=== PATIENT | male | born 1970 | race Caucasian/White ===

== ENCOUNTER → 2017-11-27 | Emergency (ER) | payer OTHER ==
[~2017-11-27] VITALS: Ht 185.4 cm; Wt 176.9 kg
[~2017-11-27] MED LIST: CYCLOBENZAPRINE10 MG PO; HUMALOG100 UNIT/1 SUB-Q; INDOMETHACIN50 MG PO; LEVEMIR FL100 UNIT/2; LIDODERM1 EACH TOP; LIPITOR80 MG GT; METFORMIN HCL1000 M1 PO; ZESTRIL40 MG PO
== END ==
LOC: ED 03:59
DX: S46.911A Strain of unspecified muscle, fascia and tendon at shoulder and upper arm level, right arm, initial encounter (principal); W17.89XA Other fall from one level to another, initial encounter; E11.9 Type 2 diabetes mellitus without complications; E78.00 Pure hypercholesterolemia, unspecified; I10 Essential (primary) hypertension; Z98.890 Other specified postprocedural states; Z90.89 Acquired absence of other organs; Z79.4 Long term (current) use of insulin; Z79.899 Other long term (current) drug therapy
CPT/HCPCS: 73030; 99283

== ENCOUNTER 2022-05-09 07:00 | Day surgery (SDC) | payer OTHER ==
[~2022-05-09] VITALS: Ht 188 cm; Wt 156.8 kg
[~2022-05-09 07:00] MED LIST changes: +ALLOPURINOL100 MG PO; +ASPIRIN81 MG PO; +ESCITALOPRAM OX20 MG; +LISINOPRIL-HCT1 EACH PO; +TOUJEO MAX300 UNIT/1 SQ; +TOUJEO SOL300 UNIT/1 SUB-Q; +VENTOLIN HFA18 GM; +VENTOLIN HFA18 GM INH
--- NOTE | 2022-05-09 09:08 | NUR ---
05/09/22 0908 Meagan Bedoya 0859 PATIENT ARRIVES TO PACU ORAL AIRWAY IN PLACE. RESP EVEN AND UNLABORED, WITH INTERVENTION, MASK AT 12 LITERS, DECREASED TO 6 LITERS 0904 PATIENT COUGHING ON ORAL AIRWAY, ORAL AIRWAY REMOVED. REQUIRES JAW THRUST TO MAINTAIN PATENT AIRWAY. 0907 PATIENT AWAKE BUT DROWSY. FOLLOWING COMMANDS. RESP EVEN AND UNLABORED, COARSE COUGH. OXYGEN MASK OFF. PATIENT DENIES PAIN OR NAUSEA.
--- NOTE | 2022-05-09 10:56 | OR ---
[facility] [address] [place], [place] [address] Signed DATE OF OPERATION: 05/09/2022 SURGEON: Finn Casiano MD PREOPERATIVE DIAGNOSIS: Screening. POSTOPERATIVE DIAGNOSES: 1. 7 mm polyp at 70 cm. 2. 5 mm polyp at 95 cm (transverse colon). 3. 7 mm polyp at 50 cm. 4. Minimal internal hemorrhoid tissue. PROCEDURE: Colonoscopy with hot biopsy. ESTIMATED BLOOD LOSS: None. INDICATIONS: Annalee is a 52-year-old obese diabetic gentleman, asked to see me for his initial screening colonoscopy. He has no lower GI complaints. There is no family history of colon cancer or polyps. He has been through gastric bypass surgery and has lost 85 pounds. He is still a very large male with a very full face, heavy flores, heavy chest, abdomen and neck. He needs moderate anesthesia care in that regard. In fact, it proved to be very martin today as he needed constant monitoring from our anesthesia provider. He told me that helped his with her colonoscopy just a couple of years ago. He has also had a right [id number] amputation. In the office, I gave him a pamphlet on colonoscopy. We reviewed the nature of the test. They understand there is risk including, but not limited to gas bloating, crampy abdominal pain, bleeding, perforation requiring surgery, and missed diagnosis. We also reviewed the need for monitored anesthesia care. They had expressed understanding and wished to proceed. PROCEDURE NOTE: Annalee was taken into our endoscopy suite and placed in the left lateral decubitus position. He was given IV sedation with propofol per our nurse administrative services coordinator. A digital rectal exam was performed. He really has no external hemorrhoids. He had good sphincter tone. I could not reach his prostate gland. The adult colonoscope had been introduced and advanced all the way around into the cecum under direct visualization of the camera without difficulty. His prep was moderate. He should use more prep in the Electronically Signed By: FINN CASIANO MD 05/09/22 1056 PATIENT NAME: ANNALEE PATEL OPERATIVE REPORT DATE OF : 72 REPORT #: [id number] PHYSICIAN: FINN CASIANO MD PCP: JEFFRY ELLER MD REPORT IS CONFIDENTIAL AND NOT TO BE RELEASED WITHOUT AUTHORIZATION [facility] [address] [place] [id number] Signed future. Nevertheless, we could see the appendiceal orifice and ileocecal valve. The scope was then slowly withdrawn. We took pictures throughout for photodocumentation. The above-mentioned polyps were easily removed with the help of hot biopsy forceps. There was no diverticulosis. The scope had been retroflexed in the rectum and he did have minimal to moderate internal hemorrhoid columns. After this, the gas was suctioned out and the colonoscope removed. Annalee tolerated the procedure quite well. RECOMMENDATIONS: Annalee will followup in my office in 7 to 14 days to review his results. He needs to consider additional bowel prep in the future. He will always need monitored anesthesia care. Finn Casiano MD ALB/MODL /[id number] cc: MD Jeffry Rebollar MD Copies: FINN CASIANO MD, ROBERT D DMD ~ Electronically Signed By: FINN CASIANO MD 05/09/22 1056 PATIENT NAME: ANNALEE PATEL OPERATIVE REPORT DATE OF : 72 REPORT #: [id number] PHYSICIAN: FINN CASIANO MD PCP: JEFFRY ELLER MD REPORT IS CONFIDENTIAL AND NOT TO BE RELEASED WITHOUT AUTHORIZATION
--- NOTE | 2022-05-13 09:36 | PATH ---
[facility] [address] [place], [place] [address] Signed SPECIMEN(S): A COLON POLYP AT 70 CM SPECIMEN(S): B COLON POLYP AT 95 CM SPECIMEN(S): C COLON POLYP AT 50 CM SPECIMEN SOURCE: A. COLON POLYP AT 70 CM B. COLON POLYP AT 95 CM C. COLON POLYP AT 50 CM CLINICAL HISTORY: Screening colonoscopy. Postop: Colon polyps, internal hemorrhoids. FINAL PATHOLOGIC DIAGNOSIS: A. Colon, polyp at 70 cm, polypectomy: - Tubular adenoma. - Negative for high-grade dysplasia or malignancy. B. Colon, polyp at 95 cm, polypectomy: - Cauterized colonic mucosa with no histopathologic abnormality. - Negative for dysplasia or malignancy. C. Colon, polyp at 50 cm, polypectomy: - Tubular adenoma. - Negative for high-grade dysplasia or malignancy. COMMENT: Regarding specimen B: Multiple additional deeper levels were examined. NAL:cml:C2NR MICROSCOPIC EXAMINATION: Histologic sections of all submitted blocks are examined by light microscopy. These findings, together with the gross examination, support the pathologic diagnosis. GROSS DESCRIPTION: Three specimens are received in three containers labeled with "JG." A. The specimen, labeled "JG, 1," and designated on the requisition "70 cm colon polypectomy," is received in formalin and consists of one fragment of pink-muniz tissue (0.3 cm in greatest dimension). The specimen is submitted entirely in cassette (A1). B. The specimen, labeled "JG, 2," and designated on the requisition "95 cm colon polypectomy," is received in formalin and consists of one fragment of pink-muniz tissue (0.2 cm in greatest dimension). PATIENT NAME: ANNALEE PATEL PATHOLOGY DATE OF : 72 REPORT #: [id number] PHYSICIAN: [facility] PCP: JEFFRY ELLER MD REPORT IS CONFIDENTIAL AND NOT TO BE RELEASED WITHOUT AUTHORIZATION [facility] [address] [place] [address] Signed The specimen is submitted entirely in cassette (B1). C. The specimen, labeled "JG, 3," and designated on the requisition "50 cm colon polypectomy," is received in formalin and consists of one fragment of pink-muniz tissue (0.3 cm in greatest dimension). The specimen is submitted entirely in cassette (C1). AC (under the direct supervision of a pathologist) The Gross Description was prepared using a voice recognition system. The report was reviewed for accuracy; however, sound-alike word errors, addition and/or deletions may occur. If there is any question about this report, please contact Client Services. PERFORMING LABORATORY: The technical component was performed by [facility], [address] [place] [id number] (CLIA# [id number]). [facility] [address] [address] (CLIA# [id number]). Diagnostician: Radha Mcneil MD Pathologist Electronically Signed 05/13/2022 Copies: ~ PATIENT NAME: ANNALEE PATEL PATHOLOGY DATE OF : 72 REPORT #: [id number] PHYSICIAN: [facility] PCP: JEFFRY ELLER MD REPORT IS CONFIDENTIAL AND NOT TO BE RELEASED WITHOUT AUTHORIZATION
== END 2022-05-09 09:40 | disposition home or self-care (01) ==
LOC: OPS 07:00 → DS 07:00 → OPS 07:45 → DS 09:15 → OPS 09:40
PROVIDERS: ATTEND Colon & Rectal Surgery
PROC: 0DBE8ZX Excision of Large Intestine, Via Natural or Artificial Opening Endoscopic, Diagnostic (ICD-10-PCS; principal; 2022-05-09 08:00)
DX: Z12.11 Encounter for screening for malignant neoplasm of colon (principal); D12.6 Benign neoplasm of colon, unspecified; K64.8 Other hemorrhoids; R00.1 Bradycardia, unspecified; E11.42 Type 2 diabetes mellitus with diabetic polyneuropathy; I10 Essential (primary) hypertension; E78.5 Hyperlipidemia, unspecified; E11.610 Type 2 diabetes mellitus with diabetic neuropathic arthropathy; E66.9 Obesity, unspecified; Z68.42 Body mass index [BMI] 45.0-49.9, adult; Z79.4 Long term (current) use of insulin; Z79.84 Long term (current) use of oral hypoglycemic drugs; Z98.84 Bariatric surgery status
CPT/HCPCS: J2704; J7121

== ENCOUNTER 2024-04-02 15:10 | Emergency (ER) | payer OTHER ==
[~2024-04-02] VITALS: Ht 188 cm; Wt 156.8 kg
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
[2024-04-02] MEDS ORDERED: LACTATED RINGER'S 1,000 ML IV ONE (15:30)
[2024-04-02 15:32] LABS: BASOPHILS 0.6 % (0-2); EOSINOPHILS 1.4 % (0-6); HEMOGLOBIN 13.3 g/dL (12.0-18.0); LYMPHOCYTES 18.4 % (24-44); MCH 28.2 (27-36); MCHC 33.2 g/dl (30-36); MCV 84.9 fl (81-99); MONOCYTES 7.2 % (0-12); NEUTROPHILS 72.4 % (39-80); PLATELET COUNT 220 K/uL (140-440); RBC 4.71 M/ul (4.3-5.7); RDW 15.9 (10.5-15.0)
[2024-04-02 15:43] LABS: ALBUMIN 3.4 g/dL (3.4-5.0); ALBUMIN/GLOBULIN RATIO 0.87 (1.1-2.4); ANION GAP 23.7 (7-21); BILIRUBIN, TOTAL 0.4 ng/dL (0.2-1.0); BUN/CREATININE RATIO 10.34 (6.0-28.6); CALCIUM 8.6 mg/dL (8.5-10.1); CREATININE, SERUM 1.45 mg/dL (0.70-1.30); POTASSIUM 3.7 mmol/L (3.5-5.1); PROTEIN, TOTAL 7.3 g/dL (6.4-8.2)
[2024-04-02 16:04] LABS: ABO A; ANTIBODY SCREEN NEGATIVE; RH POSITIVE
[2024-04-02] MEDS ORDERED: HYDROmorphone HCL 1 MG/ML SYR IV ONE (16:15)
[2024-04-02 17:02] LABS: BILIRUBIN, URINE NEGATIVE (negative); BLOOD/HGB, URINE SMALL (Negative); KETONE, URINE NEGATIVE (Negative); LEUK ESTERASE, URINE NEGATIVE (negative); NITRITE, URINE NEGATIVE (negative); PH, URINE 5.5 (5-7)
[2024-04-02 17:10] LABS: BACTERIA, URINE NONE SEEN /hpf (negative); CASTS, URINE NONE SEEN \\lpf; WHITE BLOOD CELLS, URINE 0-1 /HPF (0-5)
[2024-04-02 17:11] LABS: COLLECTION TYPE, URINE CLEAN CATCH; CRYSTALS, URINE NONE SEEN (0-1+); REFLEX CULTURE, URINE No (No)
[2024-04-02 17:17] LABS: AMPHETAMINES, URINE NEGATIVE (NEGATIVE); BARBITURATES, URINE NEGATIVE (NEGATIVE); BENZODIAZEPINE, URINE NEGATIVE (NEGATIVE); BUPRENORPHINE, URINE NEGATIVE (NEGATIVE); CANNABINOID, URINE POSITIVE (NEGATIVE); COCAINE, URINE NEGATIVE (NEGATIVE); ECSTASY, URINE NEGATIVE (NEGATIVE); FENTANYL, URINE NEGATIVE (NEGATIVE); METHADONE, URINE NEGATIVE (NEGATIVE); OPIATES, URINE NEGATIVE (NEGATIVE); OXYCODONE, URINE NEGATIVE (NEGATIVE); PHENCYCLIDINE, URINE NEGATIVE (NEGATIVE)
[2024-04-02] MEDS ORDERED: KETOROLAC TROMETHAMINE 30 MG/ML VIAL IV ONE (18:15)
[2024-04-02 19:17] VITALS: BP 118/61
== END 2024-04-02 19:21 | disposition home or self-care (01) ==
LOC: ED 15:10
PROVIDERS: Emergency Medicine
DX: S01.91XA Laceration without foreign body of unspecified part of head, initial encounter (principal); S39.012A Strain of muscle, fascia and tendon of lower back, initial encounter; S30.811A Abrasion of abdominal wall, initial encounter; S09.90XA Unspecified injury of head, initial encounter; E11.9 Type 2 diabetes mellitus without complications; E78.00 Pure hypercholesterolemia, unspecified; I10 Essential (primary) hypertension; V89.2XXA Person injured in unspecified motor-vehicle accident, traffic, initial encounter; Z79.84 Long term (current) use of oral hypoglycemic drugs; Z79.4 Long term (current) use of insulin; Z79.899 Other long term (current) drug therapy
CPT/HCPCS: 36415; 70450; 71260; 72125; 73130; 73590; 74177; 80053; 80307; 81001; 83690; 85025; 86850; 86900; 86901; 96375; 99284-25; G0480; J1170; J1885; J7121; Q9967